=== PATIENT | female | born 1955 | race Caucasian/White ===

== ENCOUNTER 2017-04-10 11:59 | Emergency (ER) | payer BC ==
[2017-04-10] MEDS ORDERED: Acetaminophen 325 MG TAB ONE (15:51)
--- NOTE | 2017-04-10 18:46 | CON ---
DATE OF CONSULTATION: 04/10/2017 HISTORY OF PRESENT ILLNESS: Ms. Arias is a 62-year-old female who I saw in the emergency department this afternoon. Her is in the room with her. 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 She has been having intermittent episodes of inc ontinence ever since that stroke. She has also been having trouble with gait abnormalities. She has been in and out of rehab for weakness and fatigue caused by the stroke for the last several years. Today, she presented with a mild headache, flu like symptoms, upper respiratory infection and fever. Her swab test was positive for flu. Her said that he noted a change in her mental status an or Wednesday of this week when she first developed a fever. Neurologically she is intact on . Cranial nerves II-XII were grossly intact. She is alert and oriented x4, her GCS is 15. She h as mild weakness in the upper and lower extremities and is having hard time ambulating. She had her head CT at [place] emergency department last night that showed mildly increasing hydrocephalus juanita red to an MRI of the brain that was taken in 2014. She recently had a CT of head, MRI and MRA of the brain on Wednesday in [place] and the report and the images are now with her. ER is treating her upp er respiratory infection and fever. Neurosurgery was consulted for the findings of mildly increasing hydrocephalus since her last CT scan of the brain. ALLERGIES: CODEINE, CODEINE SULFATE, MYOSINS. CURRENT MEDICATIONS: No recorded medications on file at this time. PAST MEDICAL HISTORY: Includes history of 2 strokes verified with the patient, she had a large basil ar tip aneurysm coiling in [address] Sosa. Flu vaccine not up to date pneumococcal vaccine is n ot up to date. FEMALE SURGICAL HISTORY: Includes hysterectomy. PSYCHIATRIC HISTORY: No previous psychiatric history. SOCIAL HISTORY: The patient denies alcohol use, denies drug use. No smoking history. Lives at home with her . REVIEW OF SYSTEMS: The patient reports fever in the past few days. She also reports recent history of coughing, wheezing, mild headache. A 10-point review of systems was completed and is otherwise ne gative unless stated in the above HPI. PHYSICAL EXAMINATION: VITAL SIGNS: Blood pressure is 149/87, pulse is 96, respirations 20, temperature is 100, O2 sat 95% on room air. GENERAL: The patient appears pain free, alert, and oriented to person, place and time. HEENT: Normocephalic, atraumatic. Hearing intact. Moist mucous membranes. Trachea is midline. EYES: Pupils equal and reactive to light. Extraocular muscles are intact. Sclerae is white, nonict chino. There is no nystagmus. NECK: Normal range of motion. No meningeal signs, no cervical adenopathy. RESPIRATORY: The patient has bilateral symmetric chest rise as wheezing was present audibly and diff use. She has equal chest expansion. CARDIOVASCULAR: The patient has a regular rate and rhythm. She has normal S1, S2 heart sounds. Her pulses are +2 in the upper extremity in the brachial and radial pulses bilaterally and in the lower extremity, she has +2 pulses and posterior tibial. There is no distal cyanosis or clubbing noted in the upper or lower extremities bilaterally. BACK: Normal to inspection. Normal range of motion. EXTREMITIES: Upper extremity patient has mild weakness bilaterally in the upper extremities. There is no dermatomal sensory loss. Lower extremity, patient has normal range of motion, mild weakness in the lower extremities and sensation is intact. NEUROLOGIC: Cranial nerves II-XII are grossly intact. Speech is fluent. She answers my questions a ppropriately. GCS is 15. There are no focal motor deficits, no focal sensory deficits. The patient is slow to answer and seems somewhat confused. She has intermittent thoughts of incontinence since 2012 when she had her stroke. ASSESSMENT: Ms. Pura Arias is a 62-year-old female who presents to the emergency department with positive for flu and diffuse weakness in the upper and lower extremities. PLAN: Dr. Samuels might have reviewed the images of her CT scan that was done in [facility] last night and compared them to MRI scan done in 2015. There is mild increasing hydrocephalus. Because o f these findings and the fact that she tested positive for the flu, there is no neurosurgical interve ntion at this time as it would put her at greater risk of meningitis. I will schedule her to follow up with a neurologist outpatient and she will have a gait assessment with a large volume lumbar punct ure. The same day as the lumbar puncture, we will get her gait reassessment to see if her gait gets better and her mentation also improves. [facility]- like symptoms. Is there any further questions, please feel free to contact Neurosurgery. The patien t would like to follow up with Dr. Best Sosa.
== END 2017-04-10 15:55 | disposition home or self-care (01) ==
LOC: ERS 11:59
DX: G91.9 Hydrocephalus, unspecified (principal); N39.0 Urinary tract infection, site not specified; J11.1 Influenza due to unidentified influenza virus with other respiratory manifestations
CPT/HCPCS: 93005

== ENCOUNTER → 2017-05-12 | Day surgery (SDC) | payer BC ==
--- NOTE | 2017-05-05 06:57 | HP ---
HISTORY OF PRESENT ILLNESS: Ms. Arias is known to us for previous evaluations of intracerebral aneu rysm and now most recently presents to the ER for evaluation hydrocephalus. On CT scan performed in the emergency department she has significantly enlarged ventricles and has started to experience epis odes of incontinence and trouble with gait. She has been in and out of rehab for weakness and fatigu e for the last several years since having a stroke and then now has just started to experience worsen ing weakness and gait abnormality. Her current CT compared to previous CT does show increase in vent ricular size, so this certainly could be indicating a progression of the hydrocephalus. ALLERGIES: CODEINE and MYCINS. CURRENT MEDICATIONS: Unassessed. PAST MEDICAL HISTORY: Two CVAs, a basilar tip aneurysm. PAST SURGICAL HISTORY: Hysterectomy and coiling. PHYSICAL EXAMINATION: GENERAL: The patient is alert and oriented x4. HEENT: Normocephalic, atraumatic. Extraocular movements are intact. Pupils are equal, round and re active to light. NEUROLOGIC: Cranial nerves II through XII are intact. Speech is fluent. No motor deficits. Gait i s unassessed. ASSESSMENT: Ventriculomegaly and gait disturbance. PLAN: At this time, I would like to send her for a hydrocephalus workup which would include PT evalu ation and then lumbar puncture followed up by immediate PT evaluation again. The plan will be to hav e her go to Health system for the purpose of this lumbar puncture which would be a high volume tap to see if this is both therapeutic and diagnostic for her condition. I will follow up afterwards.
[2017-05-07 10:06] VITALS: BMI 27.3
--- NOTE | 2017-05-12 11:04 | RAD ---
LUMBAR PUNCTURE: History: Hydrocephalus. Comparison: None. Exposure: 0.1 minutes. 106.5 mGy*cm^2. FINDINGS: Successful lumbar puncture. Opening pressure was 15 cm of water. Closing pressure was less than 9 cm of water. Total of 30 cc of clear CSF fluid was collected. Technique: Initial prone oil scout radiographic of the lumbar spine was performed. There are five lumbar vertebral b odies. No evidence of fracture. Consent was obtained to perform a lumbar puncture under fluoroscopic guidance. Patient's back was rachana luated. The L2-3 level was deemed appropriate. Skin was prepped and draped in sterile fashion. 1% Lid ocaine, buffered with sodium bicarbonate used for local anesthesia. Under fluoroscopic guidance, a 20 gauge spinal needle was advanced to the CSF space. Inter stylet was removed. Prompt flow of clear CS F to the hub of the needle. Opening pressure was determined to be 15 cm of water. A total of 33 cc of clear CSF was collected. Closing pressure was less than 9 cm of water. The CSF did not flow beyond t he hub of the needle. Patient tolerated the procedure well. No immediate or post procedure complicati ons. IMPRESSION: Successful lumbar puncture. POS: [facility]
== END ==
LOC: RAD 08:12
PROVIDERS: ATTEND Neurological Surgery
PROC: 00JU3ZZ Inspection of Spinal Canal, Percutaneous Approach (ICD-10-PCS; principal; 2017-05-12)
DX: G91.9 Hydrocephalus, unspecified (principal); Z88.5 Allergy status to narcotic agent; Z88.7 Allergy status to serum and vaccine
CPT/HCPCS: 62270; G8978-GP-CJ; G8979-GP-CJ

== ENCOUNTER 2017-12-08 07:29 | Inpatient (IN) | payer BC ==
--- NOTE | 2017-12-07 23:25 | HP ---
HISTORY OF PRESENT ILLNESS: Ms. Arias is a 62-year-old woman who is known to us previously for eval uation of intracerebral aneurysm and now most recently what appears to be hydrocephalus. She has bee n in and out of inpatient rehab with improvement and also decline in her cognitive and functional sta tus. Most recently, she has a new CT scan that shows continued enlargement of her ventricles and pre sents now for discussion of possible surgical correction of this to be a SENIOR SYSTEMS ADMINISTRATOR shunt. ALLERGIES: CODEINE and MYCINS. CURRENT MEDICATIONS: Unassessed. MEDICAL HISTORY: Two CVAs and basilar tip aneurysm. PAST SURGICAL HISTORY: Hysterectomy and aneurysmal coiling. PHYSICAL EXAMINATION: GENERAL: Patient alert and oriented x4. HEENT: Normocephalic, atraumatic. Extraocular movements are intact. Pupils are equal, round, and r eactive to light. NEUROLOGIC: Cranial nerves II-XII are intact. Speech is fluent. No motor deficits. Gait is unasse ssed. ASSESSMENT: Hydrocephalus. PLAN: At this time, Dr. Sosa met with the patient, reviewed imaging, ultimately advocated for SENIOR SYSTEMS ADMINISTRATOR sh unt placement. He explained to the patient the risks, benefits, and alternatives to the procedure. The patient expressed understanding and elected for surgery as discussed. I do believe the patient i s mentally competent and capable of making medical decisions for herself and we will do her surgery a s planned.
[2017-12-08] MEDS ORDERED: CEFAZOLIN/Water 2 GM/20 ML SYRINGE ONE (09:35)
[2017-12-08] MEDS ORDERED: Sodium Chloride 0.9% 10 ML ONE (10:08)
[2017-12-08] MEDS ORDERED: Lidocaine 0.5%/Epinephrine 1:200,000 50 ml Vial ONE (10:08)
[2017-12-08] MEDS ORDERED: Fentanyl 100 MCG/2 ML VIAL ONE (10:44)
[2017-12-08] MEDS ORDERED: Bacitracin Zinc Ointment 30 gm TUBE ONE (12:17)
[2017-12-08] MEDS ORDERED: diphenhydrAMINE 50 MG/ML VIAL IVP PRN (12:21)
[2017-12-08] MEDS ORDERED: Labetalol HCl 100 MG/20 ML VIAL SLOW IVP PRN (12:21)
[2017-12-08] MEDS ORDERED: Docusate 100 MG CAP PO PRN (12:21)
[2017-12-08] MEDS ORDERED: Ondansetron HCl/PF 4 MG/2 ML Vial IVP PRN ×2 (12:21→12:39)
[2017-12-08] MEDS ORDERED: hydrALAZINE 20 MG/ML VIAL SLOW IVP PRN (12:21)
[2017-12-08] MEDS ORDERED: Mag-Al 1200 mg/1200 mg/30 ML UDCUP PO PRN (12:21)
[2017-12-08] MEDS ORDERED: Promethazine HCl 25 MG/ML VIAL IM PRN (12:39)
[2017-12-08] MEDS ORDERED: Meperidine HCl/PF 25 MG/ML VIAL SLOW IVP PRN (12:39)
[2017-12-08] MEDS ORDERED: Promethazine HCl 25 MG/ML VIAL SLOW IVP PRN (12:39)
[2017-12-08] MEDS ORDERED: Glycopyrrolate 0.2 MG/ML 5 ML SYRINGE ONE (13:52)
[2017-12-08] MEDS ORDERED: Dexamethasone 20 MG/5 ML VIAL ONE (13:52)
[2017-12-08] MEDS ORDERED: PHENYLEPHRINE-NS 100 MCG/ML 10 ML SYRINGE ONE (13:52)
[2017-12-08] MEDS ORDERED: PROPOFOL 200 MG/20 ML VIAL ONE (13:52)
[2017-12-08] MEDS ORDERED: ePHEDrine/0.9% NaCl/PF SYRINGE 50 mg/10 ml ONE (13:52)
[2017-12-08] MEDS ORDERED: Ondansetron HCl/PF 4 MG/2 ML Vial ONE (13:52)
[2017-12-08] MEDS ORDERED: Lidocaine 1% PF 5 ML VIAL ONE (13:52)
[2017-12-08 14:04] VITALS: BMI 27.7
[2017-12-08] MEDS: Sodium Chloride 0.9% 1,000 ML IV SCH (14:49)
[2017-12-08] MEDS: CEFAZOLIN/Water 2 GM/20 ML SYRINGE SLOW IVP SCH (17:27)
[2017-12-09] MEDS: CEFAZOLIN/Water 2 GM/20 ML SYRINGE SLOW IVP SCH (00:07)
[2017-12-09] MEDS: Sodium Chloride 0.9% 1,000 ML IV SCH ×2 (02:20→15:22)
[2017-12-09 06:09] LABS: Anion Gap 14 mmol/L (10-20); BUN (Urea Nitrogen) 9 mg/dL (9.8-20.1); Calc. Creatinine Clearance 112 mL/min (70-130); Calcium 9.2 mg/dL (7.8-10.44); Carbon Dioxide 24 mmol/L (23-31); Chloride 106 mmol/L (98-107); Estimated GFR-MDRD 89; Glucose 154 mg/dL (80-115); Potassium 3.9 mmol/L (3.5-5.1); Sodium 140 mmol/L (136-145)
[2017-12-09 07:01] LABS: Band 5 % (5-11); Hemoglobin 13.6 g/dL (12.0-16.0); Lymphocytes 7 % (21-51); MDiff Complete? YES; Mean Corpuscular HGB CONC 33.2 g/dL (32.0-36.0); Mean Corpuscular Hemoglobin 29.4 pg (27.0-31.0); Mean Corpuscular Volume 88.4 fL (78.0-98.0); Mean Platelet Volume 8.3 fL (7.4-10.4); Monocytes 2 % (0-10); Neutrophil 86 % (42-75); PLT Morphology Comment Appears Adequate; Platelet Count 279 thou/uL (130-400); RBC Morphology Normal; Red Blood Cell (RBC) Count 4.63 mill/uL (4.20-5.40); White Blood Cell (WBC) Count 12.4 thou/uL (4.8-10.8)
--- NOTE | 2017-12-09 17:47 | PRG ---
DATE OF SERVICE: 12/09/2017 Mr. Arias is status post day 1 following a SECURITY SOFTWARE ENGINEER shunt placement is doing very well. She has minimal h eadache if any at all. She has a hungry appetite and is ready to eat breakfast, which will help faci litate. She also wishes to get out of bed and I think she is well enough, so we can transfer her to the floor. We will follow from there. Case management to be working on and help with placement to a rehab center in [place]. From a neurosurgical standpoint, she is cleared as soon as they are ready to take her. Incision is still dry and well approximated.
[2017-12-09] MEDS: Acetaminophen 325 MG TAB PO PRN (18:30)
[2017-12-10] MEDS: Sodium Chloride 0.9% 1,000 ML IV SCH ×2 (04:30→15:07)
--- NOTE | 2017-12-10 10:04 | CON ---
DATE OF CONSULTATION: 12/09/2017 HISTORY OF PRESENT ILLNESS: Pura Arias is a pleasant 62-year-old female. Her was telling me she had actually been in an LTAC over in the [facility] for quite some time. He had to drive at [address] over to see her. He told me he wanted to see her. She has had 3 cerebrovascular accidents in the past and a central nervous system basilar aneurysm. She was admitted for ventriculoperitoneal shunt placement. She has had aneurysm coiling in the past. She was actually in rehabilitation here [address] House. She has had a hysterectomy in the past. She apparently reviewing all records from 2012, had a basilar tip aneurysm that was coiled in 2008 and then in 2009, she had recurrence of basilar apex aneurysm that again was coiled. In 2010, she had a coiling as well. In 2012, she was found to have bilateral thalamic infarcts, bilateral cerebral hemispheric infarcts, and left occipital infarct. She had an aneurysm coiling again in 10/2012 and recovered slowly from that. PAST HISTORY: Has dealt with neurological issues for many years SOCIAL HISTORY: Nonsmoker, nondrinker. She appears to have a very supportive . She has been a heavy smoker in the past. FAMILY HISTORY: Negative for lung disease in early age. REVIEW OF SYSTEMS: 10 point system review completed, otherwise essentially negative at this time. PHYSICAL EXAMINATION: GENERAL: maryjane 62-year-old female VITAL SIGNS: Blood pressure is 127/40, heart rate 70, respiratory rate 18. HEENT: Pupils are equally reactive. Her sclerae are anicteric. NECK: Supple. LUNGS: Clear. HEART: Regular rhythm. S1 and S2 are normal. ABDOMEN: Soft and nontender. EXTREMITIES: Without clubbing, cyanosis, or edema. IMPRESSION: Status post ventriculoperitoneal shunt placement, clinically stable. I met with the and answered all of his questions. The next step I believe is rehabilitation. This is a 70 minute consult with greater than 50% of the time spent on unit with coordination of care. TAURUS
--- NOTE | 2017-12-10 10:17 | PRG ---
DATE OF SERVICE: 12/10/2017 Ms. Arias is now 2 days status post placement of ventriculoperitoneal shunt for noncommunicating hyd rocephalus. She has had an uneventful recovery so far. Our plan [facility] [place] She is stable to be transferred to that facility at any time. Follow up will be arranged with us in approximately 2 weeks.
[2017-12-10] MEDS: Acetaminophen 325 MG TAB PO PRN (11:42)
--- NOTE | 2017-12-10 12:49 | PRG ---
DATE OF SERVICE: 12/10/2017 SUBJECTIVE: Ms. Arias actually was using her incentive spirometer on her own when I walked in the r oom. She is doing well. She is very unstable on her feet. OBJECTIVE: VITAL SIGNS: Blood pressure is 133/71, heart rate 73, respiratory rate 22. LUNGS: Clear. HEART: Regular rhythm. ABDOMEN: Soft. LABORATORY DATA: There is no new lab. IMPRESSION: Status post ventriculoperitoneal shunt after a long history of neurosurgical problems. They are tentatively working on placement in rehabilitation, which I believe she is stable to conside r. I met with the and answered all of his questions. He is happy with her progress.
[2017-12-11] MEDS: Sodium Chloride 0.9% 1,000 ML IV SCH ×2 (08:56→23:05)
--- NOTE | 2017-12-11 09:32 | PRG ---
DATE OF SERVICE: 12/11/2017 I visited Ms. Arias in her hospital room this morning. She is doing well after ventriculoperitoneal shunting. She tells me that her placement plan is to go back to [place]. She has a bit of incisio nal pain, but otherwise she is doing well. Her vital signs have been stable. Incision seemed to be healing well. On examination, she has slow speech, but it is appropriate. She is weak on the left a nd better on the right, but she is at her neurological baseline. Our plan is to discharge to inpatient rehabilitation as soon as a bed is available. This could happe n as early as today.
--- NOTE | 2017-12-11 14:56 | PRG ---
DATE OF SERVICE: 12/11/2017 SUBJECTIVE: Pura Arias is a 62-year-old female. She is out of the ICU surgical floor. OBJECTIVE: VITAL SIGNS: Sats are 98% on room air, temperature 98.6, respirations 16, and blood pressure 140/79. She denies any pain or discomfort. CHEST: Decreased breath sounds without any wheezing. CARDIAC: Normal S1 and S2. ABDOMEN: Soft, no masses. The patient is status post ventriculoperitoneal shunt for hydrocephalus, stable. PLAN: Pulmonary or critical care will follow at a distance. Please call as needed. Plan is to sent her to the rehab in [place]. [facility]
--- NOTE | 2017-12-12 08:57 | PRG ---
DATE OF SERVICE: 12/12/2017 I saw Ms. Arias in the rounds this morning. She remembers me from yesterday. She is resting comfor tably, but easily arouses when I come into the room. She does not have any specific questions for me . I do not notice any new neurological deficits. I [facility] and she tells me that is going to happen tomorrow.
[2017-12-12] MEDS: Sodium Chloride 0.9% 1,000 ML IV SCH (10:49)
--- NOTE | 2017-12-12 14:07 | PRG ---
DATE OF SERVICE: 12/12/2017 SUBJECTIVE: On the surgical floor this morning, she is taking a shower. Status post ventriculoperit wood shunt, longstanding history of neurological problems. No distress. OBJECTIVE: VITAL SIGNS: Stable with O2 sat of 90% on room air, respirations 16, temperature 98, blood pressure 115/74. CHEST: No wheezing. CARDIAC: Normal S1 and S2, no gallops. IMPRESSION: Status post FUR DRESSING SUPERVISOR shunt, presumed aspiration and antibiotics. PLAN: Disposition to inpatient rehabilitation. We will follow.
[2017-12-13] MEDS: Sodium Chloride 0.9% 1,000 ML IV SCH (09:18)
[2017-12-13 16:25] VITALS: BP 123/81; TEMP 98
--- NOTE | 2017-12-15 14:45 | OP ---
DATE OF OPERATION: 12/13/2017 SURGEON: Dilan Sosa M.D. DRY CLEANING TEACHER: Sukumar Jaquez PA-C. INDICATION: Prevent neurologic decline. DIAGNOSIS: Hydrocephalus. PROCEDURE: Placement of ventriculoperitoneal shunt. ANESTHESIA: General. TECHNIQUE: The patient was brought into the operating room and placed under general anesthesia. She was placed on the table in supine position. Two incisions were planned. The first was a linear sub xiphoid incision. The second was a curvilinear incision behind the right ear along the right occiput . These areas were infiltrated with lidocaine for hemostasis. Both areas were prepped and draped in usual sterile fashion. Following appropriate operative pause, both incisions were created. A bur h ole was then placed along the right occiput for exposure of the underlying dura. A long trocar was t hen used to pass the peritoneal portion shunt tubing from the occipital incision down to the subxipho id incision. An intraventricular catheter was then placed within the ventricle and connected to the shunt valve and peritoneal portion of the catheter. There was noted to be egress of spinal fluid wit h placement of the ventricular catheter and egress of spinal fluid along the distal aspect of the per itoneal tubing. A linear incision was made within the peritoneal cavity and the peritoneal portion o f the tubing was placed in the peritoneum. Both incisions were then irrigated. Hemostasis was maint ained at both incisions. Both were then closed in anatomic layers and pressure dressings were applie d. There were no known procedural complications.
== END 2017-12-13 16:26 | DRG 33 ==
LOC: SURG A 07:29 → CCU 13:19 → SURG A 12-10 15:59
PROVIDERS: ADMIT Neurological Surgery; ATTEND Neurological Surgery
PROC: 00160J6 Bypass Cerebral Ventricle to Peritoneal Cavity with Synthetic Substitute, Open Approach (ICD-10-PCS; principal; 2017-12-13)
DX: G91.1 Obstructive hydrocephalus (principal); Z86.73 Personal history of transient ischemic attack (TIA), and cerebral infarction without residual deficits; Z86.69 Personal history of other diseases of the nervous system and sense organs
CPT/HCPCS: 36415; 80048; 85025; A4216; G8978-GP-CM; G8979-GP-CK; G8987-GO-CL; G8988-GO-CJ; J1100; J2001; J2405; J2704; J3010; J3490

== ENCOUNTER 2017-12-20 19:07 | Observation (INO) | payer BC ==
[2017-12-20 19:52] LABS: #Eosinphils 0.3 thou/uL (0.0-0.7); #Lymphocytes 3.6 thou/uL (1.20-3.40); #Monocytes 0.5 thou/uL (0.11-0.59); #Neutrophils 5.2 thou/uL (1.40-6.50); %Basophils 0.4 % (0.0-1.0); %Eosinophils 2.7 % (0.0-10.0); %Lymphocytes 37.5 % (21.0-51.0); %Monocytes 5.7 % (0.0-10.0); %Neutrophils 53.8 % (42.0-75.0); Hemoglobin 13.4 g/dL (12.0-16.0); Mean Corpuscular HGB CONC 32.5 g/dL (32.0-36.0); Mean Corpuscular Hemoglobin 28.9 pg (27.0-31.0); Mean Corpuscular Volume 88.8 fL (78.0-98.0); Mean Platelet Volume 7.5 fL (7.4-10.4); Platelet Count 352 thou/uL (130-400); RBC Distribution Width 12.8 % (11.5-14.5); Red Blood Cell (RBC) Count 4.62 mill/uL (4.20-5.40); White Blood Cell (WBC) Count 9.6 thou/uL (4.8-10.8)
[2017-12-20 20:12] LABS: ALT (SGPT) 21 U/L (8-55); AST (SGOT) 12 U/L (5-34); Albumin 3.9 g/dL (3.4-4.8); Alkaline Phosphatase 94 U/L (40-150); Anion Gap 13 mmol/L (10-20); BUN (Urea Nitrogen) 13 mg/dL (9.8-20.1); Bilirubin, Total 0.5 mg/dL (0.2-1.2); Calc. Creatinine Clearance 0 mL/min (70-130); Carbon Dioxide 24 mmol/L (23-31); Chloride 106 mmol/L (98-107); Estimated GFR-MDRD 89; Globulin 3.4 g/dL (2.4-3.5); Glucose 104 mg/dL (80-115); Lipase 30 U/L (8-78); Potassium 3.3 mmol/L (3.5-5.1); Protein, Total 7.3 g/dL (6.0-8.3); Sodium 140 mmol/L (136-145)
[2017-12-20 20:19] LABS: Bilirubin Negative (Negative); Blood, Urine Moderate (Negative); Clarity CLOUDY (Clear); Glucose, Urine (Dipstick) Negative (Negative); Leukocyte Small (Negative); Nitrite Positive (Negative); Protein, Urine (Dipstick) Trace mg/dL (Neg-Trace); Specific Gravity, Urine 1.023 (1.002-1.036); Urobilinogen 0.2 mg/dL (0.2-1.0); pH, Urine 5.5 (5.0-9.0)
[2017-12-20 20:21] LABS: Pregnancy Test - Urine (BHCG) Negative (Negative); Pregu Control Background? CLEAR/WHITE (CLR/WHITE); Pregu Control Bar Appear? YES (CONTROL BAR); Specific Gravity 1.023 (1.002-1.036)
[2017-12-20 20:22] LABS: Bacteria/HPF 4+ HPF (None Seen); Hyaline Casts/LPF 4-6 HYALINE CAST LPF (0-3 Hyaline); Pathc Cast-AUWi Flag 1.01 (0-2.49)
[2017-12-20 20:30] LABS: RBC/HPF 0-3 HPF (0-3)
--- NOTE | 2017-12-20 22:37 | CT ---
CT ABDOMEN AND PELVIS WITHOUT IV CONTRAST: INDICATIONS: A 62-year-old female with abdominal pain in the right lower abdomen. FINDINGS: There is a 1 to 2 mm calculus within the inferior pole left kidney. There is a 1 to 2 mm calculus wi thin the left mid kidney. No right-sided renal or ureteral calculus is evident. There is an [address] involving the inferior pole of the right kidney. No hydronephrosis is demonstrated. There is a ventriculoperitoneal catheter with the tip projecting into the right upper quadrant of the abdomen. Unopacified liver, spleen, pancreas, and adrenal glands are unremarkable. There are moderate calcifications involving the abdominal aorta. The bladder is decompressed. There are scattered diverticula involving the colon. There are bone infarcts involving the proximal right femur. There is scattered degenerative and oste oarthritic change. There is mild bibasilar atelectasis. IMPRESSION: 1. Left nephrolithiasis. No ureteral calculus grossly evident. 2. Small right renal cyst. 3. Ventriculoperitoneal catheter. 4. Colonic diverticulosis. 5. Small amount of free fluid in the pelvis may be related to the patient's ventriculoperitoneal malathi nt catheter. POS: [facility]
[2017-12-21 02:34] VITALS: BMI 26.4
[2017-12-21] MEDS ORDERED: Ondansetron HCl/PF 4 MG/2 ML Vial IVP PRN ×3 (02:39→09:24)
[2017-12-21] MEDS ORDERED: Acetaminophen 325 MG TAB PO PRN ×2 (02:39→09:24)
[2017-12-21] MEDS ORDERED: Ondansetron ODT 4 MG TAB SL PRN (02:39)
[2017-12-21] MEDS ORDERED: ISOVUE-370 76%-LOCM 1 ML ONE (06:46)
[2017-12-21] MEDS: Sodium Chloride 0.9% 1,000 ML IV SCH (09:20)
[2017-12-21] MEDS ORDERED: Senokot 8.6 MG TAB PO PRN (09:24)
[2017-12-21] MEDS ORDERED: Bisacodyl 5 MG TAB PO PRN (09:24)
[2017-12-21] MEDS ORDERED: Calcium Carbonate 500 MG ChewTAB PO PRN (09:24)
[2017-12-21] MEDS ORDERED: Mag-Al 1200 mg/1200 mg/30 ML UDCUP PO PRN (09:24)
[2017-12-21] MEDS ORDERED: cloNIDine 0.1 MG TAB PO PRN (09:24)
[2017-12-21] MEDS ORDERED: Lorazepam 1 MG TAB PO PRN (09:24)
[2017-12-21] MEDS ORDERED: HYDROcodone/Acetaminophen 5/325 mg Tablet PO PRN (09:24)
[2017-12-21] MEDS ORDERED: traMADol HCl 50 MG TAB PO PRN (09:24)
[2017-12-21] MEDS ORDERED: Nitroglycerin 0.4 MG TAB (25 Tab Bottle) SL PRN (09:24)
[2017-12-21] MEDS ORDERED: hydrALAZINE 20 MG/ML VIAL SLOW IVP PRN (09:24)
[2017-12-21] MEDS ORDERED: Diabetic Tussin 200 MG/10 ML UDCUP PO PRN (09:24)
[2017-12-21] MEDS ORDERED: Benzonatate 100 MG CAP PO PRN (09:24)
[2017-12-21] MEDS ORDERED: Loratadine 10 MG TAB PO PRN (09:24)
[2017-12-21 10:28] LABS: #Eosinphils 0.3 thou/uL (0.0-0.7); #Lymphocytes 2.5 thou/uL (1.20-3.40); #Monocytes 0.4 thou/uL (0.11-0.59); #Neutrophils 4.5 thou/uL (1.40-6.50); %Basophils 0.6 % (0.0-1.0); %Lymphocytes 32.2 % (21.0-51.0); %Monocytes 5.3 % (0.0-10.0); %Neutrophils 57.9 % (42.0-75.0); Mean Corpuscular HGB CONC 33.1 g/dL (32.0-36.0); Mean Corpuscular Hemoglobin 29.7 pg (27.0-31.0); Mean Corpuscular Volume 89.7 fL (78.0-98.0); Mean Platelet Volume 7.8 fL (7.4-10.4); Platelet Count 305 thou/uL (130-400); RBC Distribution Width 12.7 % (11.5-14.5); Red Blood Cell (RBC) Count 4.38 mill/uL (4.20-5.40); White Blood Cell (WBC) Count 7.8 thou/uL (4.8-10.8)
[2017-12-21 10:50] LABS: Anion Gap 14 mmol/L (10-20); BUN (Urea Nitrogen) 13 mg/dL (9.8-20.1); Calc. Creatinine Clearance 104 mL/min (70-130); Calcium 8.5 mg/dL (7.8-10.44); Carbon Dioxide 19 mmol/L (23-31); Chloride 108 mmol/L (98-107); Estimated GFR-MDRD 89; Glucose 97 mg/dL (80-115); Potassium 3.3 mmol/L (3.5-5.1); Sodium 138 mmol/L (136-145)
[2017-12-21] MEDS ORDERED: cefTRIAXone\\ROCEPHIN 2 GM in Sodium Chloride 0.9% 100 ML IVPB SCH ×2 (11:00→23:59)
[2017-12-21] MEDS ORDERED: Enoxaparin Sodium 40 MG/0.4 ML SYRINGE SC SCH (11:00)
--- NOTE | 2017-12-21 11:10 | HP ---
DATE OF ADMISSION: 12/21/2017 CHIEF COMPLAINT: Abdominal pain. PRIMARY CARE PHYSICIAN: Aurea Mireles D.O. HISTORY OF PRESENTING ILLNESS: Ms. Arias is a pleasant 62-year-old female with history of CVA and m ultiple surgeries for brain aneurysm by Dr. Sosa and Neurosurgery team and most recent CVA in 2012, who presented to the emergency room from rehab in [place] with the above-mentioned complaints. Hist ory is mainly obtained by the patient herself and electronic medical records have been reviewed. The patient is a rather poor historian as she is slow in responding and seems to have some chronic demen tia from multiple strokes in the past. Ms. Arias underwent ventriculoperitoneal shunt by Dr. Sosa on 12/13/2017 for what seems like hydroc ephalus from her history of prior strokes and brain aneurysms. She was having symptoms of changes in her neurological status with increased gait, unsteadiness and somnolence. CT scan done as an outpat ient showed profound ventriculomegaly with evidence of transependymal flow. She tolerated the proced ure well and was sent to rehabilitation. The patient reports that she started to have severe abdominal pain located in the right side and pres ented to the emergency room for that. She denies any fever or chills. No vomiting or diarrhea. She denies any urinary symptoms. She denies any blood in her urine. She denies any pain in her back. Abdominal pain was nonradiating. There were no changes in her neurological status. She did have paloma e recent headaches. She was brought to the Emergency Room by her . Upon presentation, she was hemodynamically sta ble with blood pressure of 117/71, pulse of 64, afebrile, saturating 93% on room air. She underwent CT scan of the abdomen and pelvis as her abdominal examination showed tenderness. CT scan of the abd omen did not show anything specific except that she has a small calculus in the kidney disease 2-3 mm . No pyelonephritis was noted on the CT scan. She was given IV Rocephin along with the pain medicat ions and is now being admitted for further workup and care. Presumptive diagnosis as per the emergen cy room is UTI, possible pyelonephritis as her urinalysis showed +4 bacteria. Please note that the sample seems like a contaminated sample as it had 7-10 squamous epithelial cells as well. PAST MEDICAL HISTORY: 1. Hypertension. 2. Multiple CVA, most recently in 2012 involving bilateral thalamic hemisphere, left occipital regio n and bilateral cerebral hemispheres. 3. History of cerebral aneurysms with multiple coiling in 2008, 2009, 2010 and 2012. 4. Hydrocephalus status post ABRASIVE WATER JET CUTTER OPERATOR shunt on 12/13/2017. 5. Chronic muscle wasting and atrophy. PAST SURGICAL HISTORY: 1. Hysterectomy. 2. ABRASIVE WATER JET CUTTER OPERATOR shunt insertion 12/13/2017. PSYCHIATRIC HISTORY: Depression. SOCIAL HISTORY: Currently lives in a long-term care facility at [facility]. No history of drug, tobacco or alcohol abuse. The patient is . FAMILY HISTORY: Difficult to obtain as the patient is not able to provide much history. EMR does no t specify any specific family history of coronary artery disease, stroke or any inheritable diseases. ALLERGIES: CODEINE, ERYTHROMYCIN, INFLUENZA VIRUS VACCINE. CURRENT MEDICATIONS: Actually have not been updated yet. REVIEW OF SYSTEMS: A 12 point review of systems was done. It is negative except for those mentioned in the history and physical. LABORATORY DATA AND IMAGING DATA: CBC is unremarkable. Serum chemistry shows potassium of 3.3, othe rwise normal, liver enzymes normal and lipase normal. Urinalysis show moderate blood, positive nitri maye, small leukocyte esterase, WBCs 11-20, squamous epithelial cells 7-10 and +4 bacteria. Urine pre gnancy test was also done which was negative. CT scan of the abdomen and pelvis shows left nephrolit hiasis, 1-2 mm calculus in the left mid kidney without any obstruction. No hydronephrosis. The ABRASIVE WATER JET CUTTER OPERATOR s carlson still projecting in the right upper quadrant of the abdomen. There are bone infarcts involving the proximal right femur. She has diverticulosis without diverticulitis. PHYSICAL EXAMINATION: VITAL SIGNS: Most recent vital signs, temperature 97.5, pulse rate 51, respirations 18, saturating 9 5% on room air, blood pressure 115/53. GENERAL: No acute distress, lying comfortably in bed, awake, alert, and oriented x3. She is slow to respond and seems somewhat confused at times, but otherwise answers questions appropriately and foll ows simple commands. HEENT: Mucous membranes are slightly dry. No oropharyngeal exudate or erythema. Head is normocepha lic, atraumatic. Pupils are equal and reactive to light and accommodation. Extraocular movement int act. NECK: Supple without any lymphadenopathy, JVD or bruit. CHEST: Clear to auscultation without any wheezing, rales or rhonchi. Rhythm is regular without any murmur, rubs or gallops. ABDOMEN: Tender to palpation in the periumbilical region as well as right upper quadrant. Bowel maria eugenia nds are heard. No guarding, rebound or rigidity. EXTREMITIES: Free of any cyanosis, clubbing, or edema. NEUROLOGIC: Examination is nonfocal. SKIN: Free of any rashes or bruises. Feels warm and dry to touch. PSYCHIATRIC: Normal affect. IMPRESSION AND PLAN: 1. Abdominal pain. Possibility of ABRASIVE WATER JET CUTTER OPERATOR shunt infection versus urinary tract infection leading to the symptoms. She will be continued on high dose Rocephin for now and we will consult Infectious Disease , Dr. Zarate for further recommendations. CT scan does not specify if she has pyelonephritis or not. Urine culture has been sent and we will follow the results of the same. Continue gentle IV fluid hy dration and add p.r.n. supportive care as well. 2. History of cerebrovascular accident. I am not sure if the patient is on any aspirin or statins a t home. She does have history of multiple brain aneurysms requiring coiling, so there is a chance th at she was taken off of the aspirins aspirin because of this. We will reconsult her home medication. 3. History of brain aneurysm, status post coiling multiple times, currently stable mentation. Christa nue neuro checks frequently. 4. Deep venous thrombosis and gastrointestinal prophylaxis. 5. Hydrocephalus post ABRASIVE WATER JET CUTTER OPERATOR shunt placement on 12/13/[address] Sosa. 6. Sinus bradycardia monitor. 7. Code status: FULL CODE. Discussed with the patient. DISPOSITION: Ms. Arias is currently being admitted to the hospital with abdominal pain of unclear e tiology and possible UTI. Estimated length of stay at this time is less than 2 midnights, but furthe r management will depend upon her clinical course.
--- NOTE | 2017-12-21 20:22 | CT ---
CT OF THE ABDOMEN AND PELVIS WITH IV CONTRAST: 12/21/17 INDICATION: Right sided abdominal pain. COMPARISON: Prior exam dated 12/20/17. FINDINGS: There is bibasilar atelectasis. NIGHT AUDITOR shunt is again noted and unchanged in position. Small right renal cyst is stable. Left nephrolithiasis is stable. Adrenal glands, pancreas and spleen appear within normal limits. Small and large bowel appear within normal limits. Small amount of fluid is seen within the pelvis, unchanged in volume from the prior exam. The bladder , rectum, and perirectal soft tissues are unremarkable. There is diffuse osteopenia. There is scattered degenerative and osteoarthritic change. IMPRESSION: 1. Stable exam. No definite acute abnormality seen. 2. Stable NIGHT AUDITOR shunt catheter. 3. Stable small amount of fluid in the pelvis may be related to patient's NIGHT AUDITOR shunt catheter. 4. Mild bibasilar atelectasis. 5. Small right renal cyst. 6. Left nephrolithiasis. POS: [facility]
[2017-12-21] MEDS: Famotidine 20 MG TAB PO SCH (21:00)
--- NOTE | 2017-12-21 23:13 | CON ---
DATE OF CONSULTATION: 12/21/2017 REASON: Abdominal pain. HISTORY OF PRESENT ILLNESS: This is a 62-year-old lady, who has a history of hypertension and prior CVAs, also prior cerebral aneurysms with coiling four different times and development of hydrocephalu s, which required placement of SILVER SERVICE WAITER shunt, 12/13/2017. Patient had been transferred to [facility] and then started developing abdominal pain, mostly in the right flank and upper quadrant. S he remembers the onset of pain soon after the SILVER SERVICE WAITER shunt was placed. Right now, she does not have any fever or chills. She has not had any throughout the past few days. No vomiting, no headaches or vis ual symptoms. Ambulation, according to her, has improved markedly. No diarrhea. No genitourinary s ymptoms. PAST MEDICAL HISTORY: Includes hypertension, prior CVAs, cerebral aneurysms with coiling, hydrocepha angela and SILVER SERVICE WAITER shunt placement recently, muscle wasting. PAST SURGICAL HISTORY: Hysterectomy and the above surgery history. SOCIAL HISTORY: Lives in [facility]. Never smoker. . FAMILY HISTORY: Noncontributory. ALLERGIES: CODEINE, ERYTHROMYCIN, INFLUENZA VACCINE. CURRENT MEDICATIONS: Tylenol, [place], Maalox, Tessalon, Dulcolax, Tums, ceftriaxone, Catapres, Loveno x, Pepcid, Claritin, Ativan, Zofran. PHYSICAL EXAMINATION: VITAL SIGNS: Temperature is normal, blood pressure 120/58, pulse 55, respiratory rate 16. GENERAL: Appears in no distress. Peripheral IV access. No Bello catheter. HEENT: Ocular movements conjugate. Pupils are equal and reactive. Oral cavity moist, artificial de ntures. NECK: Supple, no jugular vein distention. LUNGS: With symmetric clear breath sounds. BACK: No back tenderness. HEART: S1 and S2, regular rate. Dewitt and pulses normal. No murmurs. ABDOMEN: Soft with mild tenderness mostly in the right upper quadrant on percussion. No organomegal y or ascites. No bladder distention. EXTREMITIES: No joint inflammatory activity. Pulses are 1+ in dorsalis pedis. NEUROLOGIC: Plantar responses are flexor. She moves extremities equally. Cognitive function, she i s awake, knows her name, knows she is in the hospital at [facility], could not tell me the full haseeb e. Recollection is quite limited. She has difficulty with the sequence of events and long-term reca ll is also empiric. LABORATORY DATA: Fairly unremarkable including a CBC and a chemistry except for mild hypokalemia. U rinalysis was abnormal with 11-20 wbc's, positive nitrite, still pending microbiology results. Abdom en and pelvis CT without contrast. Nephrolithiasis, left side. No hydronephrosis or obstruction. V P shunt, colonic diverticulosis. ASSESSMENT: Prior cerebrovascular accidents with hydrocephalus and SILVER SERVICE WAITER shunt, recently placed now wit h abdominal pain. There are no inflammatory changes in the peripheral blood and no fever. There is a concern with urine infection. At this point, the differential diagnosis includes a SILVER SERVICE WAITER shunt infect ion or complications of the distal end of the SILVER SERVICE WAITER shunt versus a urinary tract infection. Await on lture results. We will complete the CT study with contrast phase CT scan. If CT is normal and the c ultures show infection or colonization of the urine or urinary tract, then treat for that possibility . If the CT is abnormal in relationship to the device, then we will have to proceed accordingly.
[2017-12-22 05:10] LABS: #Eosinphils 0.3 thou/uL (0.0-0.7); #Lymphocytes 2.3 thou/uL (1.20-3.40); #Monocytes 0.4 thou/uL (0.11-0.59); #Neutrophils 4.1 thou/uL (1.40-6.50); %Basophils 0.6 % (0.0-1.0); %Eosinophils 4.2 % (0.0-10.0); %Lymphocytes 31.8 % (21.0-51.0); %Monocytes 6.2 % (0.0-10.0); %Neutrophils 57.2 % (42.0-75.0); Hemoglobin 12.9 g/dL (12.0-16.0); Mean Corpuscular Hemoglobin 29.9 pg (27.0-31.0); Mean Corpuscular Volume 88.1 fL (78.0-98.0); Mean Platelet Volume 7.8 fL (7.4-10.4); Platelet Count 313 thou/uL (130-400); RBC Distribution Width 12.6 % (11.5-14.5); Red Blood Cell (RBC) Count 4.31 mill/uL (4.20-5.40); White Blood Cell (WBC) Count 7.2 thou/uL (4.8-10.8)
[2017-12-22 05:23] LABS: Anion Gap 12 mmol/L (10-20); BUN (Urea Nitrogen) 6 mg/dL (9.8-20.1); Calc. Creatinine Clearance 120 mL/min (70-130); Calcium 8.7 mg/dL (7.8-10.44); Carbon Dioxide 25 mmol/L (23-31); Chloride 107 mmol/L (98-107); Estimated GFR-MDRD Greater than 90; Glucose 80 mg/dL (80-115); Potassium 3.1 mmol/L (3.5-5.1); Sodium 141 mmol/L (136-145)
[2017-12-22] MEDS: Sodium Chloride 0.9% 1,000 ML IV SCH (05:30)
[2017-12-22] MEDS ORDERED: Potassium Chloride 40 MEQ in Premix Bag 1 BAG IVPB SCH (07:15)
[2017-12-22] MEDS: Famotidine 20 MG TAB PO SCH (07:53)
[2017-12-22] MEDS: Potassium Chloride 20 MEQ in Premix Bag 1 BAG IVPB SCH ×2 (07:54→08:58)
[2017-12-22] MEDS ORDERED: Enoxaparin Sodium 40 MG/0.4 ML SYRINGE SC SCH (09:00)
[2017-12-22] MEDS ORDERED: Potassium Chloride 20 MEQ TAB PO SCH (09:15)
[2017-12-22 11:32] VITALS: BP 112/56; TEMP 98.1
--- NOTE | 2017-12-22 11:52 | PDOC.PN ---
- Subjective Encounter Start Date: 12/22/17 Encounter Start Time: 11:50 - Objective Resuscitation Status: Resuscitation Status FULL:Full Resuscitation Vital Signs & Weight: Vital Signs (12 hours) Temp Pulse Pulse Resp BP BP Pulse Ox 12/22/17 11:07 98.1 F 60 16 112/56 L 93 L 12/22/17 10:30 63 88/42 L 12/22/17 08:00 98.2 F 57 L 20 12/22/17 07:25 98.2 F 57 L 20 128/61 92 L 12/22/17 04:00 98.5 F 61 16 133/65 94 L Pulse Ox 12/22/17 11:07 12/22/17 10:30 91 L 12/22/17 08:00 12/22/17 07:25 12/22/17 04:00 Weight Weight 164 lb 1.6 oz I&O: 12/21/17 12/22/17 12/23/17 06:59 06:59 06:59 Intake Total 2318 Output Total 200 Balance 2118 Result Diagrams: 12/22/17 04:29 12/22/17 04:29 Radiology Reviewed by me: Yes (CT Abdo/pelvis-no acute abnormality) Phys Exam - Physical Examination Constitutional: NAD HEENT: PERRLA, moist MMs, sclera anicteric, oral pharynx no lesions Neck: no nodes, no JVD, supple, full ROM Respiratory: no wheezing, no rales, no rhonchi, clear to auscultation bilateral Cardiovascular: RRR, no significant murmur, no rub Gastrointestinal: soft, non-tender, no distention, positive bowel sounds Musculoskeletal: no edema, pulses present Neurological: non-focal, normal sensation, moves all 4 limbs Psychiatric: normal affect, A&O x 3 Skin: no rash Dx/Plan (1) Abdominal pain Code(s): R10.9 - UNSPECIFIED ABDOMINAL PAIN Status: Acute Comment: CT negative for BAG SHAKER shunt abnormality/signs of peritonitis (2) Hypokalemia Code(s): E87.6 - HYPOKALEMIA Status: Acute (3) UTI (urinary tract infection) Status: Suspected Comment: E.Coli<50,000-? contaminated sample (4) H/O: CVA (cerebrovascular accident) Code(s): Z86.73 - PRSNL HX OF TIA (TIA), AND CEREB INFRC W/O RESID DEFICITS Status: Chronic (5) Brain aneurysm Status: Chronic Comment: H/O coiling in past (6) BAG SHAKER (ventriculoperitoneal) shunt status Status: Chronic - Plan continue antibiotics, PT/OT, incentive spirometry, out of bed/ambulate, DVT proph w/SCDs empiric ABx. If cx remian negative,likley DC back to [facility] today -: follow final ID recs for Dc ABx. -: clinically better & HD stable. -: replace and recheck Potassium -: home meds as below * . Review of Systems - Review of Systems Constitutional: weakness, malaise. negative: fever, chills, sweats, other ENT: negative: Ear Pain, Ear Discharge, Nose Pain, Nose Discharge, Nose Congestion, Mouth Pain, Mouth Swelling, Throat Pain, Throat Swelling, Other Respiratory: negative: Cough, Dry, Shortness of Breath, Hemoptysis, SOB with Excertion, Pleuritic Pain, Sputum, Wheezing Cardiovascular: negative: chest pain, palpitations, orthopnea, paroxysmal nocturnal dyspnea, edema, light headedness, other Gastrointestinal: negative: Nausea, Vomiting, Abdominal Pain, Diarrhea, Constipation, Melena, Hematochezia, Other Genitourinary: negative: Dysuria, Frequency, Incontinence, Hematuria, Retention , Other Musculoskeletal: negative: Neck Pain, Shoulder Pain, Arm Pain, Back Pain, Hand Pain, Leg Pain, Foot Pain, Other Skin: negative: Rash, Lesions, Colin, Bruising, Other Neurological: negative: Weakness, Numbness, Incoordination, Change in Speech, Confusion, Seizures, Other - Medications/Allergies Allergies/Adverse Reactions: Allergies Allergy/AdvReac Type Severity Reaction Status Date / Time Egg Derived Allergy Verified 12/21/17 02:46 Influenza Virus Vaccines Allergy Verified 05/07/17 10:07 codeine AdvReac Verified 12/21/17 02:46 erythromycin base AdvReac Verified 12/21/17 02:46 mycins Allergy Uncoded 12/07/17 17:12 Medications: Current Medications Acetaminophen (Tylenol) 650 mg PO Q4H PRN PRN Reason: Headache/Fever or Pain Hydrocodone Bitart/Acetaminophen (Steele 5/325) 1 tab PO Q4H PRN PRN Reason: Moderate Pain (4-6) Last Admin: 12/22/17 07:53 Dose: 1 tab Al Hydroxide/Mg Hydroxide (Maalox) 30 ml PO Q6H PRN PRN Reason: Heartburn or Indigestion Benzonatate (Tessalon) 100 mg PO Q4H PRN PRN Reason: Cough Bisacodyl (Dulcolax) 10 mg PO DAILYPRN PRN PRN Reason: Constipation Calcium Carbonate (Tums) 1,000 mg PO Q4H PRN PRN Reason: Heartburn or Indigestion Clonidine (Catapres) 0.1 mg PO Q4H PRN PRN Reason: Systolic BP > 160 Enoxaparin Sodium (Lovenox) 40 mg SC 0900 [facility] Last Admin: 12/22/17 07:54 Dose: 40 mg Famotidine (Pepcid) 20 mg PO BID [facility] Last Admin: 12/22/17 07:53 Dose: 20 mg Guaifenesin (Robitussin Sf) 200 mg PO Q4H PRN PRN Reason: Cough Hydralazine HCl (Apresoline) 10 mg SLOW IVP Q4H PRN PRN Reason: Systolic BP > 170 Sodium Chloride (Normal Saline 0.9%) 1,000 mls @ 50 mls/hr IV .Q20H [facility] Last Admin: 12/22/17 05:30 Dose: Not Given Ceftriaxone Sodium 2 gm/ (Sodium Chloride) 100 mls @ 200 mls/hr IVPB 2359 [facility] Last Admin: 12/22/17 00:07 Dose: 100 mls Loratadine (Claritin) 10 mg PO DAILYPRN PRN PRN Reason: Sinus Symptoms Lorazepam (Ativan) 1 mg PO Q4H PRN PRN Reason: Anxiety/Agitation Nitroglycerin (Nitrostat) 0.4 mg SL Q5MIN PRN PRN Reason: Chest Pain Ondansetron HCl (Zofran) 4 mg IVP Q6H PRN PRN Reason: Nausea/Vomiting Last Admin: 12/22/17 07:53 Dose: 4 mg Senna (Senokot) 2 tab PO HSPRN PRN PRN Reason: Constipation Sodium Chloride (Flush - Normal Saline) 10 ml IVF Q12HR [facility] Last Admin: 12/22/17 07:54 Dose: 10 ml Sodium Chloride (Flush - Normal Saline) 10 ml IVF PRN PRN PRN Reason: Saline Flush Tramadol HCl (Ultram) 50 mg PO Q4H PRN PRN Reason: Moderate Pain (4-6)
--- NOTE | 2017-12-22 22:48 | DIS ---
DATE OF ADMISSION: 12/21/2017 DATE OF DISCHARGE: 12/22/2017 DISCHARGE DISPOSITION: Back to [facility]. DISCHARGE DIAGNOSES: 1. Urinary tract infection. 2. Suspected GLOBAL CEO shunt associated infection. 3. Abdominal pain. 4. Hypokalemia. 5. History of cerebrovascular accident. 6. History of brain aneurysm, status post coiling. 7. History of hydrocephalus, status post GLOBAL CEO shunt placement earlier this month. PROCEDURES DONE IN THE HOSPITAL: 1. CT scan of the abdomen and pelvis on 12/20/2017 which shows left nephrolithiasis without any obvi ous abnormalities. This was done without IV contrast. 2. Repeat CT scan of the abdomen and pelvis on 12/21/2017 with IV contrast, which showed stable exam without any definitive acute abnormality seen, stable GLOBAL CEO shunt catheter was seen. CONSULTATIONS INHOUSE: Infectious Disease, Dr. Zarate. DISCHARGE MEDICATIONS: Levofloxacin 500 mg p.o. daily. HISTORY OF PRESENT ILLNESS: Ms. Arias is a 62-year-old female with history of CVA and brain aneurys m status post coiling, who presented to the ER with complaints of abdominal pain. She recently had a GLOBAL CEO shunt placed in by Dr. Sosa on 12/13/2017. Because of the abdominal pain, it was suspected that she might have shunt related infection in the abdomen and the CT scan of the abdomen and pelvis with out IV contrast was done in the emergency room and she was given empiric antibiotics and was admitted . Please see admission history and physical dictated by myself for further details. HOSPITAL COURSE: The patient's symptoms resolved quickly. She also had a urinalysis that had +4 colin teria, but also multiple squamous epithelial cells. It was sent to culture and upon admission, it wa s thought that she might have urinary tract infection. Urine culture was positive for E. coli, but i t was less than 100,[address] Zarate was consulted with regards to this as well as with que stions of GLOBAL CEO shunt infection. He repeated a CT scan with IV contrast, which was once again unremarka ble. The patient did not have any signs or symptoms to suggest sepsis. She had no leukocytosis, ban demia or left shift. She was afebrile and stable. She was continued on Rocephin while she was here, which was later changed to levofloxacin for discharge. She was seen and examined this morning and is back to being herself. Dr. Zarate has recommended outpa tient levofloxacin for 5 days and follow up for further evaluation for possible GLOBAL CEO shunt infection. Currently, the patient is asymptomatic and hemodynamically stable and will be discharged back to [facility]. She was found to have low potassium which was replaced prior to discharge. Please see hospitalist progress note from today's date for further detail including [id number] interaction.
== END 2017-12-22 15:00 ==
LOC: ERS 19:07 → 2SW 12-21 01:11
PROVIDERS: ADMIT Hospitalist; ATTEND Hospitalist
DX: N39.0 Urinary tract infection, site not specified (principal); B96.20 Unspecified Escherichia coli [E. coli] as the cause of diseases classified elsewhere; I10 Essential (primary) hypertension; F32.9 Major depressive disorder, single episode, unspecified; E87.6 Hypokalemia; Z86.73 Personal history of transient ischemic attack (TIA), and cerebral infarction without residual deficits; Z88.5 Allergy status to narcotic agent; Z88.7 Allergy status to serum and vaccine; Z88.8 Allergy status to other drugs, medicaments and biological substances; Z91.012 Allergy to eggs; Z98.2 Presence of cerebrospinal fluid drainage device; Z98.890 Other specified postprocedural states
CPT/HCPCS: 36415; 74176; 74177; 80048; 80053; 81003; 81015; 81025; 83690; 85025; 87077; 87086; 87186; 96361; 96365; 96366; 96372; 96375; 96376; G0378; G8978-GP-CK; G8979-GP-CJ; G8987-GO-CI; G8988-GO-CI; G8989-GO-CI; J0696; J1650; J2405; J7050

== ENCOUNTER 2017-12-23 19:40 | Emergency (ER) | payer BC ==
[2017-12-23 20:23] LABS: #Basophils 0.1 thou/uL (0.0-0.2); #Eosinphils 0.3 thou/uL (0.0-0.7); #Lymphocytes 2.7 thou/uL (1.20-3.40); #Monocytes 0.4 thou/uL (0.11-0.59); #Neutrophils 3.6 thou/uL (1.40-6.50); %Eosinophils 4.2 % (0.0-10.0); %Lymphocytes 38.4 % (21.0-51.0); %Neutrophils 50.5 % (42.0-75.0); Hemoglobin 13.4 g/dL (12.0-16.0); Mean Corpuscular HGB CONC 33.7 g/dL (32.0-36.0); Mean Corpuscular Hemoglobin 29.8 pg (27.0-31.0); Mean Corpuscular Volume 88.3 fL (78.0-98.0); Mean Platelet Volume 7.3 fL (7.4-10.4); Platelet Count 343 thou/uL (130-400); RBC Distribution Width 12.8 % (11.5-14.5); Red Blood Cell (RBC) Count 4.51 mill/uL (4.20-5.40); White Blood Cell (WBC) Count 7.1 thou/uL (4.8-10.8)
[2017-12-23 20:46] LABS: ALT (SGPT) 18 U/L (8-55); AST (SGOT) 15 U/L (5-34); Albumin 3.6 g/dL (3.4-4.8); Alkaline Phosphatase 83 U/L (40-150); Anion Gap 12 mmol/L (10-20); BUN (Urea Nitrogen) 11 mg/dL (9.8-20.1); Bilirubin, Total 0.6 mg/dL (0.2-1.2); Calc. Creatinine Clearance 0 mL/min (70-130); Carbon Dioxide 27 mmol/L (23-31); Chloride 106 mmol/L (98-107); Estimated GFR-MDRD 79; Globulin 3.3 g/dL (2.4-3.5); Glucose 99 mg/dL (80-115); Lipase 17 U/L (8-78); Potassium 3.6 mmol/L (3.5-5.1); Protein, Total 6.9 g/dL (6.0-8.3); Sodium 141 mmol/L (136-145)
[2017-12-23 21:41] LABS: Bilirubin Negative (Negative); Blood, Urine Trace (Negative); Clarity CLEAR (Clear); Glucose, Urine (Dipstick) Negative (Negative); Leukocyte Negative (Negative); Nitrite Negative (Negative); Protein, Urine (Dipstick) Negative (Neg-Trace); Urobilinogen 0.2 mg/dL (0.2-1.0); pH, Urine 5.5 (5.0-9.0)
[2017-12-23 21:43] LABS: Bacteria/HPF None Seen HPF (None Seen); Hyaline Casts/LPF 7-10 HYALINE CAST LPF (0-3 Hyaline); Pathc Cast-AUWi Flag 1.59 (0-2.49); WBC/HPF 0-3 HPF (0-3)
[2017-12-23] MEDS ORDERED: traMADol HCl 50 MG TAB ONE (22:11)
== END 2017-12-24 00:02 ==
LOC: ERS 19:40
DX: N39.0 Urinary tract infection, site not specified (principal); Z98.2 Presence of cerebrospinal fluid drainage device; F32.9 Major depressive disorder, single episode, unspecified; Z79.899 Other long term (current) drug therapy
CPT/HCPCS: 36415; 80053; 81003; 81015; 83690; 85025; 99284